=== PATIENT | male | born 1985 | race Caucasian/White ===

== ENCOUNTER 2016-12-05 15:48 | Observation (INO) | payer MEDICAID ==
[2016-12-05 15:55] VITALS: TEMP 98.6; O2SAT 100
[2016-12-05] MEDS ORDERED: Iohexol 240 (50 ml) PO ONE (16:24)
--- NOTE | 2016-12-05 16:33 | ED PDOC ---
HPI: Abdomen Time Seen by Provider: 12/05/16 16:07 Chief Complaint (Nursing): Abdominal Pain Chief Complaint (Provider): Abdominal Pain History Per: Patient History/Exam Limitations: no limitations Onset/Duration Of Symptoms: Days (chronic abdominal pain for 5x years), Worse Since (3x days) Current Symptoms Are (Timing): Still Present Severity: Moderate Location Of Pain/Discomfort: LLQ (left flank) Quality Of Discomfort: Burning Associated Symptoms: denies: Fever, Nausea, Vomiting, Diarrhea, Back Pain, Urinary Symptoms Alleviating Factors: None Additional Complaint(s): 31 year old male with a pertinent medical history of chronic abdominal pain ( states that he was diagnosed with colitis 5x years ago, but was unsure of his diagnosis and never followed up with a specialist because of insurance problems ) presents to the ED with complaints of burning left lower quadrant abdominal pain and swelling that worsened 3x days ago. he admits to smoking smoking cannabis and tylenol earlier today with no relief. He denies having any other symptoms including a fever, nausea, vomiting, diarrhea, hematochezia, groin pain , urinary symptoms. PMD: Shreyas Wilde MD Past Medical History Reviewed: Historical Data, Nursing Documentation, Vital Signs Vital Signs: Last Vital Signs Temp 98.6 F 12/05/16 21:29 Pulse 87 12/05/16 21:29 Resp 16 12/05/16 21:29 BP 131/73 12/05/16 21:29 Pulse Ox 100 12/05/16 21:29 - Medical History Other PMH: adominal pain for 5x years - Surgical History Surgical History: No Surg Hx - Family History Family History: States: Unknown Family Hx - Social History Current smoker - smoking cessation education provided: Yes (< 10 cigarettes a day) Alcohol: Social Drugs: Cannabis - Immunization History Hx Tetanus Toxoid Vaccination: No Hx Influenza Vaccination: No Hx Pneumococcal Vaccination: No - Home Medications Home Medications: Ambulatory Orders Medication Instructions Recorded Aluminum Hydroxide/Magnesium 30 ml PO QID #1 alis 11/15/14 [Maalox Plus 360 ml] Famotidine [Pepcid] 20 mg PO BID #20 tab 11/15/14 Ibuprofen [Motrin] 600 mg PO Q6H #20 tab 11/15/14 traMADol [Ultram] 50 mg PO Q4H PRN #20 tab 11/15/14 Dicyclomine [Bentyl] 10 mg PO QID #20 cap 03/06/16 Famotidine [Pepcid] 20 mg PO DAILY #30 tab 11/06/15 Ondansetron ODT [Zofran ODT] 1 odt PO BID PRN #6 odt 11/06/15 Dicyclomine [Bentyl] 20 mg PO Q12 PRN #20 tab 12/05/16 - Allergies Allergies/Adverse Reactions: Allergies Allergy/AdvReac Type Severity Reaction Status Date / Time No Known Allergies Allergy Verified 12/05/16 15:54 Review of Systems ROS Statement: Except As Marked, All Systems Reviewed And Found Negative Constitutional: Negative for: Fever Cardiovascular: Negative for: Chest Pain Gastrointestinal: Positive for: Abdominal Pain (left lower quadrant). Negative for: Nausea, Vomiting, Diarrhea, Hematochezia Genitourinary Male: Negative for: Hematuria, Scrotal Pain Musculoskeletal: Negative for: Back Pain Physical Exam - Reviewed Nursing Documentation Reviewed: Yes Vital Signs Reviewed: Yes - Physical Exam Appears: Positive for: Well, Non-toxic, No Acute Distress Head Exam: Positive for: ATRAUMATIC, NORMOCEPHALIC Skin: Positive for: Normal Color, Warm, Dry Eye Exam: Positive for: Normal appearance Cardiovascular/Chest: Positive for: Regular Rate, Rhythm Respiratory: Positive for: Normal Breath Sounds Gastrointestinal/Abdominal: Positive for: Tenderness (left lower quadrant and left side flank tenderness) Back: Positive for: Normal Inspection. Negative for: L CVA Tenderness Neurologic/Psych: Positive for: Alert, Oriented (3x) - Laboratory Results Result Diagrams: 12/05/16 16:30 12/05/16 17:20 - ECG O2 Sat by Pulse Oximetry: 100 (RA) Pulse Ox Interpretation: Normal Medical Decision Making Medical Decision Makin:07 Initial impression: 31 year old male with left lower quadrant pain. Differential diagnoses include but are not limited to diverticulitis, colitis, muscle pain, and lumbar radiculopathy. Initial plan: * CT abd and pelvis with PO and IV contrast * CMP * udip * cbc * morphine 4mg IVP * omnipaque 240 50ml PO * reevaluation 16:31 Patient will be placed into ED observation secondary to clinical condition. See ED observation note for further updates. Scribe Attestation: Documented by Kylee Mcgrath acting as a scribe for Blake Polo MD MD Scribe Attestation: All medical record entries made by the Alishaibe were at my direction and personally dictated by me. I have reviewed the chart and agree that the record accurately reflects my personal performance of the history, physical exam, medical decision making, and the department course for this patient. I have also personally directed, reviewed, and agree with the discharge instructions and disposition. ED OBSERVATION Date of observation admission: 12/05/16 Time of observation admission: 16:31 - Observation admission statement Patient is being placed in observation because:: secondary to clinical condition - Goals of Observation Goals of observation are:: Patient is placed into ED observation pending CT scans, reevaluation, and final disposition. - Progress Note Progress Note: 12/05/16 19:00 Patient will be signed out by me to Bob Kim MD pending CT abd and pelvis, reevaluation, and final disposition. Disposition - Clinical Impression Clinical Impression: IBD (inflammatory bowel disease) - Patient ED Disposition Is Patient to be Admitted: No Doctor Will See Patient In The: Office Counseled Patient/Family Regarding: Studies Performed, Diagnosis, Need For Followup - Disposition Disposition: Transfer of Care Disposition Time: 19:00 Condition: FAIR
[2016-12-05] MEDS ORDERED: Iohexol 240 (50 ml) ONE (16:35)
[2016-12-05 17:34] LABS: BASO % 0.5 % (0.0-2.0); EOS % 0.2 % (0.0-4.0); HEMATOCRIT 43.1 % (35.0-51.0); LYMPH # 1.8 K/uL (1.0-4.3); LYMPH % 24.2 % (20.0-40.0); MEAN CELL VOLUME 90.3 fl (80.0-94.0); MEAN CORPUSCULAR HEMOGLOBIN 30.8 pg (27.0-31.0); MEAN CORPUSCULAR HGB CONC 34.1 g/dL (33.0-37.0); MEAN PLATELET VOLUME 8.3 fl (7.2-11.7); MONO # 0.5 K/uL (0.0-0.8); MONO % 7.1 % (0.0-10.0); NEUT # 5.2 K/uL (1.8-7.0); RED CELL DISTRIBUTION WIDTH 13.5 % (11.5-14.5); WHITE BLOOD COUNT 7.6 K/uL (4.8-10.8)
[2016-12-05 17:42] LABS: CHLORIDE 103 mmol/L (98-107); SODIUM 137 mmol/l (132-148)
[2016-12-05 17:43] LABS: POTASSIUM 4.2 MMOL/L (3.6-5.0)
[2016-12-05 17:45] LABS: ALB/GLOB RATIO 1.6 (1.0-2.1); ALKALINE PHOSPHATASE 55 U/L (38-126); ALT/SGPT 29 U/L (21-72); AST/SGOT 29 U/L (17-59); BILIRUBIN,TOTAL 0.6 mg/dl (0.2-1.3); BLOOD UREA NITROGEN 11 mg/dl (9-20); CARBON DIOXIDE 22 mmol/L (22-30); GFR AFRICAN-AMERICAN > 60; GLUCOSE,RANDOM 135 mg/dL (75-110); TOTAL PROTEIN 7.4 G/DL (6.3-8.2)
[2016-12-05 17:46] LABS: CALCIUM 9.5 mg/dL (8.4-10.2)
[2016-12-05] MEDS ORDERED: Iohexol 300 100 ML IJ ONE (19:00)
[2016-12-05] MEDS ORDERED: Sodium Chloride 0.9% 50 ML IV ONE (19:01)
--- NOTE | 2016-12-05 19:24 | ED PDOC ---
- Laboratory Results Result Diagrams: 12/05/16 16:30 12/05/16 17:20 - ECG O2 Sat by Pulse Oximetry: 100 (RA) - CT Scan/US CT abd and pelvis with PO and IV contrast Other Rad Studies (CT/US): Read By Radiologist, Radiology Report Reviewed Medical Decision Making Medical Decision Makin:00 Patient will be signed out to me by Blake Polo MD pending CT results, reevaluation, and final disposition. 20:10 CT abd/pelvis with PO and IV contrast results reviewed FINDINGS: Lower thorax: Heart size is normal. There is minimal atelectasis at the lung bases. ABDOMEN: Liver: There is fatty infiltration of the liver. Gallbladder and bile ducts: unremarkable Pancreas: unremarkable Spleen: unremarkable Adrenals: unremarkable Kidneys and ureters: unremarkable Stomach and bowel: Stomach is incompletely distended. Descending duodenum is mildly dilated with wall and fold prominence. Rotation is normal. There is proximal small bowel wall thickening. Small bowel in the left upper quadrant is dilated with air-fluid levels. There is transition to normal caliber in the mid abdomen where small bowel is decompressed.. There is mild dilatation and fecalization of the distal and terminal ileum. Appendix is unremarkable. There is moderate stool in the right colon. There is hepatic flexure wall thickening. There is fatty infiltration of a segmental area of sigmoid colon. There is mild rectal wall thickening. Appendix: See above. PELVIS: Bladder: unremarkable Reproductive: Prostate is mildly enlarged. Seminal vesicles are unremarkable. ABDOMEN and PELVIS: Intraperitoneal space: There is no free air or free fluid. Bones/joints: There are degenerative changes in the osseus structures. Soft tissues: unremarkable Vasculature: There are calcified phleboliths. Vascular structures are unremarkable. Lymph nodes: There is no pathologic adenopathy. IMPRESSION: Enteritis with ileus and/or partial obstruction; prior colitis with focal areas of wall thickening and fatty infiltration, constellation of findings suggest Crohn's disease; no acute solid visceral abnormality 20:57 Upon reevaluation, patient has remarkably improved. I reviewed his CT scans which is largely unchanged from his CT scan from 2014. He has had multiple visits to the ED for abdominal pain. His CT shows possible IBD, when asked if anyone in his family has colitis, he stated that his father and uncle have ulcerative colitis. He hasn't been able to see a GI specialist in the past few years because of insurance issues, but has since seen one, and has been provided a referral (from the ED) to see one. . Patient will be discharged home with Rx for bentyl. Counseling was provided and all questions were answered regarding diagnosis and need for follow up with GI specialist. There is agreement to discharge plan. Return if symptoms persist or worsen. Scribe Attestation: Documented by Kylee Mcgrath, acting as a scribe for Bob Kim MD. Provider Scribe Attestation: All medical record entries made by the Scribe were at my direction and personally dictated by me. I have reviewed the chart and agree that the record accurately reflects my personal performance of the history, physical exam, medical decision making, and the department course for this patient. I have also personally directed, reviewed, and agree with the discharge instructions and disposition. Disposition - Clinical Impression Clinical Impression: IBD (inflammatory bowel disease) - POA Present On Arrival: None - Disposition Disposition: Routine/Home Disposition Time: 20:57 Condition: STABLE
--- NOTE | 2016-12-05 20:10 | CT ---
EXAM: CT Abdomen and Pelvis With Intravenous Contrast CLINICAL HISTORY: 31 years old, male; Pain; Abdominal pain; Localized; Left lower quadrant (llq); Patient HX: HX of colitis; Additional info: Abdominal pain llq TECHNIQUE: Axial computed tomography images of the abdomen and pelvis with intravenous contrast. This CT exam was performed using one or more of the following dose reduction techniques: automated exposure control, adjustment of the mA and/or kV according to patient size, and/or use of iterative reconstruction technique. Coronal and sagittal reformatted images were created and reviewed. CONTRAST: 95 mL of administered intravenously. EXAM DATE/TIME: 12/05/2016 4:31 PM COMPARISON: CT - ABD PELVIS PO IV CONTRAST 04/24/2014 12:01:04 AM FINDINGS: Lower thorax: Heart size is normal. There is minimal atelectasis at the lung bases. ABDOMEN: Liver: There is fatty infiltration of the liver. Gallbladder and bile ducts: unremarkable Pancreas: unremarkable Spleen: unremarkable Adrenals: unremarkable Kidneys and ureters: unremarkable Stomach and bowel: Stomach is incompletely distended. Descending duodenum is mildly dilated with wall and fold prominence. Rotation is normal. There is proximal small bowel wall thickening. Small bowel in the left upper quadrant is dilated with air-fluid levels. There is transition to normal caliber in the mid abdomen where small bowel is decompressed.. There is mild dilatation and fecalization of the distal and terminal ileum. Appendix is unremarkable. There is moderate stool in the right colon. There is hepatic flexure wall thickening. There is fatty infiltration of a segmental area of sigmoid colon. There is mild rectal wall thickening. Appendix: See above. PELVIS: Bladder: unremarkable Reproductive: Prostate is mildly enlarged. Seminal vesicles are unremarkable. ABDOMEN and PELVIS: Intraperitoneal space: There is no free air or free fluid. Bones/joints: There are degenerative changes in the osseus structures. Soft tissues: unremarkable Vasculature: There are calcified phleboliths. Vascular structures are unremarkable. Lymph nodes: There is no pathologic adenopathy. IMPRESSION: Enteritis with ileus and/or partial obstruction; prior colitis with focal areas of wall thickening and fatty infiltration, constellation of findings suggest Crohn's disease; no acute solid visceral abnormality
[2016-12-05 23:31] VITALS: BP 131/73; PULSE 87; RESP 16
== END 2016-12-05 21:15 | disposition home or self-care (01) ==
LOC: H.ER 15:48 → H.EROBSV 16:31
PROVIDERS: ADMIT Emergency Medicine; ATTEND Emergency Medicine
DX: K58.9 Irritable bowel syndrome, unspecified (principal); F17.210 Nicotine dependence, cigarettes, uncomplicated